=== PATIENT | male | born 2000 | race African-American/Black ===

== ENCOUNTER 2023-08-05 06:15 | Emergency (ER) | payer MEDICAID ==
[~2023-08-05] VITALS: Ht 162.6 cm; Wt 65.0 kg
[2023-08-05 06:20] VITALS: O2SAT 99
[2023-08-05] MEDS: LEVETIRACETAM 500MG PREMIX 100 ML IV ONE (06:57)
[2023-08-05 08:33] LABS: BASOPHILS % 0.5 % (0.0-2.0); EOSINOPHILS % 3.7 % (0.0-5.0); HEMATOCRIT. 27.2 % (42.0-52.0); HEMOGLOBIN. 7.8 g/dL (14.0-18.0); LYMPHOCYTES % 20.1 % (20.0-50.0); MEAN CORPUSCULAR HEMOGLOBIN 16.4 pg (28.0-32.0); MEAN CORPUSCULAR HGB CONC 28.5 g/dL (31.0-37.0); MEAN CORPUSCULAR VOLUME 57.7 fL (80.0-94.0); MEAN PLATELET VOLUME 9.5 fl (7.4-10.4); MONOCYTES % 10.7 % (2.0-8.0); PLATELET 408 x1000/uL (130-400); RED BLOOD CELL COUNT 4.72 mill/uL (4.7-6.1); RED CELL DISTRIBUTION WIDTH 20.2 % (11.6-14.6); WHITE BLOOD COUNT 9.7 x1000/uL (4.5-11.0)
[2023-08-05 08:47] LABS: CHLORIDE 109 mEq/L (98-107); POTASSIUM 4.4 mEq/L (3.5-5.1); SODIUM 140 mEq/L (136-145)
[2023-08-05 08:49] LABS: ADD RBC MORPHOLOGY YES; CARBON DIOXIDE 25 mEq/L (21-32); DIFFERENTIAL COMMENT 1
[2023-08-05 08:54] LABS: CREATININE 0.6 mg/dL (0.6-1.3); GLUCOSE 86 mg/dL (70-105); UREA NITROGEN BLOOD 10 mg/dL (9-23)
[2023-08-05 08:58] LABS: THYROID STIMULATING HORMONE 0.55 uIU/mL (0.55-4.78)
[2023-08-05 09:23] LABS: ANISOCYTOSIS 3+; HYPOCHROMASIA 1+; MICROCYTOSIS 3+; OVALOCYTES 2+; PLATELET ESTIMATE INCREASED
[2023-08-05 10:32] VITALS: BP 92/56; PULSE 61; RESP 18; TEMP 98.2
== END 2023-08-05 11:08 | disposition home or self-care (01) ==
LOC: ER 06:15
DX: R56.9 Unspecified convulsions (principal)
CPT/HCPCS: 80048; 84443; 85025; 36415; 96365; 99285; J1953; Z7610 ×7